=== PATIENT | female | born 1990 | race Caucasian/White ===

== ENCOUNTER 2024-05-29 10:30 | Emergency (ER) | payer BC ==
[~2024-05-29] VITALS: Ht 182.9 cm; Wt 106.4 kg
[2024-05-29 10:45] VITALS: BP 118/63; PULSE 78; RESP 16; TEMP 97.9; O2SAT 96
== END 2024-05-29 11:29 | disposition home or self-care (01) ==
LOC: MED 10:30
DX: M33.13 Other dermatomyositis without myopathy (principal)
CPT/HCPCS: 99281